=== PATIENT | male | born 1970 | race Caucasian/White ===

== ENCOUNTER 2021-09-25 11:20 | Emergency (ER) | payer OTHER ==
[~2021-09-25 11:20] MED LIST: ZOFRAN8 MG PO
[2021-09-25] MEDS ORDERED: MEDROL 4MG DOSEP4 MG PO (13:38)
== END 2021-09-25 13:46 | disposition home or self-care (01) ==
LOC: FER 11:20
DX: S90.32XA Contusion of left foot, initial encounter (principal); Z28.310 Unvaccinated for COVID-19; W22.8XXA Striking against or struck by other objects, initial encounter; Y92.009 Unspecified place in unspecified non-institutional (private) residence as the place of occurrence of the external cause
CPT/HCPCS: 73660; J1100